=== PATIENT | male | born 1930 | race Caucasian/White ===

== ENCOUNTER → 2018-09-26 | Day surgery (SDC) | payer MEDICARE | LOC: MSO 13:22 | DX: D12.5 Benign neoplasm of sigmoid colon (principal); K22.70 Barrett's esophagus without dysplasia; K21.9 Gastro-esophageal reflux disease without esophagitis; I50.9 Heart failure, unspecified; F41.9 Anxiety disorder, unspecified; R19.7 Diarrhea, unspecified; I11.0 Hypertensive heart disease with heart failure; M19.90 Unspecified osteoarthritis, unspecified site; Z90.49 Acquired absence of other specified parts of digestive tract; Z95.0 Presence of cardiac pacemaker; Z79.82 Long term (current) use of aspirin; Z87.891 Personal history of nicotine dependence; Z86.010 Personal history of colon polyps; Z85.46 Personal history of malignant neoplasm of prostate; Z80.0 Family history of malignant neoplasm of digestive organs ==

== ENCOUNTER 2018-10-07 13:59 | Emergency (ER) | payer MEDICARE ==
[~2018-10-07] VITALS: Wt 73.0 kg
[~2018-10-07 13:59] MED LIST: ALTACE PO; COREG25 MG PO; LEVAQUIN 250MG250 M1 PO; TOPROL XL 50MG50 MG PO
[2018-10-07] MEDS ORDERED: TIMOLOL MALEATE10 M1 OD (14:11)
[2018-10-07] MEDS ORDERED: LATANOPROST 2.2.5 ML OU (14:11)
[2018-10-07 15:08] VITALS: BP 129/66
== END 2018-10-07 15:15 | disposition home or self-care (01) ==
LOC: ED 13:59
DX: S05.11XA Contusion of eyeball and orbital tissues, right eye, initial encounter (principal); I10 Essential (primary) hypertension; Z85.46 Personal history of malignant neoplasm of prostate; Z85.038 Personal history of other malignant neoplasm of large intestine; W10.9XXA Fall (on) (from) unspecified stairs and steps, initial encounter; Y92.219 Unspecified school as the place of occurrence of the external cause
CPT/HCPCS: 90715

== ENCOUNTER → 2018-10-12 | Emergency (ER) | payer MEDICARE ==
[~2018-10-12] MED LIST changes: +LATANOPROST 2.2.5 ML OU; +TIMOLOL MALEATE10 M1 OD
[2018-10-12 16:08] VITALS: BP 101/48
== END ==
LOC: ED 15:41
DX: Z48.02 Encounter for removal of sutures (principal)